=== PATIENT | female | born 2005 | race Hispanic/Latino ===

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

== ENCOUNTER 2025-02-16 02:24 | Emergency (ER) | payer BC ==
[~2025-02-16] VITALS: Ht 154.9 cm; Wt 103.5 kg
[~2025-02-16 02:24] MED LIST changes: -IBUP-2829 PO; +IBUP-2859 PO
--- NOTE | 2025-02-16 03:07 | ERN ---
ED Note History of Present Illness Stated Complaint: COUGH Chief Complaint: Cough Time Seen by MD: 02:27 Dictation: This is a 19-year-old female who presented to the emergency room complaining of subjective fever with chills body aches and flu-like syndrome. All this started yesterday and she also reported some cough and congestion and nonspecific headache. She denied any nausea vomitings diarrhea. No hemoptysis. Respiratory distress or dyspnea. Temperature 99.6 pulse 107 respirations 20 blood pressure 154/75 with a pulse oximetry of 97% on room air Past medical history significant for history of hip surgery and morbid obesity Allergies: Coded Allergies: No Known Allergies (Unverified Allergy, Unknown, 12/16/20) Home Meds Active Scripts Benzonatate (Tessalon Perles) 100 Mg Cap, 200 MG PO TID for cough, #60 CAP 0 Refills Prov:RAMYA CLANCY 11/11/24 Loratadine (Loratadine) 10 Mg Tablet, 1 TAB PO DAILY for allergy symptoms for 30 Days, #30 TAB 0 Refills Prov:PATSY FAUST MD 11/06/24 Fluticasone Propionate (Flonase Nasal [place]) 50 Mcg/Actuation [place], 2 SPRAY NS DAILY, #16 GM 0 Refills Prov:PATSY FAUST MD 11/06/24 Benzonatate (Tessalon Perles) 100 Mg Cap, 100 MG PO TID for cough, #30 CAP 0 Refills Prov:INESSA URIOSTEGUI I PAC 11/04/23 Naproxen (Naproxen) 375 Mg Tablet.dr, 375 MG PO [id number] PRN for PAIN for 7 Days, #14 TAB Prov:TRES JAMISON PATIENT SERVICE SPECIALIST 09/09/22 Ibuprofen (Motrin/Advil) 600 Mg Tab, 600 MG PO Q6HPRN, #30 TAB Prov:TRES SMITH NP 12/16/20 Guaifen/Dextromethorphan/PE (Vanatab Dm Caplet) 1 Each Tablet, 1 EACH PO Q6HPRN, #30 TAB Prov:TRES SMITH NP 12/16/20 Azithromycin (Zithromax) 1 Gm Packet, 1 GM PO ONCE, #1 PKT Prov:TRES SMITH NP 12/16/20 Past Medical History Past Medical History: No Pertinent History Surgical History: Other Surgical History Other: HIP SURGERY Family History: Negative Social History: Negative History: Not Applicable : 0 Para: 0 Aborts: 0 RN Note Reviewed/Agreed w/PFSH: Yes Review of System Dictation Constitutional: Positive for fever,chills, and weight loss positive for body aches Eyes: Negative for injury, pain,redness, and discharge ENT: Negative for injury,pain or swelling Cardiovascular: Negative for chest pain, palpitations, and edema Respiratory: Negative for shortness of breath, positive cough, and congestion Abdomen/GI: Negative for abdominal pain, nausea, vomiting, diarrhea, and constipation Back: Negative for injury and pain : Negative for injury, bleeding and discharge MS/Extremity: Negative for injury and deformity Skin: Negative for rash, and discoloration Neuro: Positive for headache, denied weakness, numbness, tingling, and seizure Psych: Negative for suicide ideation, homicidal ideation, and hallucinations Initial Vital Sign VS Vital Signs Date Time Temp Pulse Resp B/P (MAP) Pulse Ox O2 Delivery O2 Flow Rate FiO2 02/16/25 02:25 99.7 107 20 154/75 97 Room Air 0 Physical Exam Dictation General: awake, alert, NAD morbidly obese Head/Face: Normocephalic, atraumatic Eyes: PERRL, EOMI, vision at baseline ENT: oral cavity clear, TMs clear, no signs of infection Neck: Trachea midline, supple, no nuchal rigidity Cardiovascular: RRR, normal S1/S2, No MRGs, no JVD Respiratory: CTAB, no respiratory distress, No rales or wheezes Abdomen: Soft, non-tender, non-distended, normal bowel sounds, no guarding or rebound. Skin: Warm, dry, normal turgor, no rash MS/Extremity: Pulses equal, no cyanosis, neurovascular intact, FROM Neuro: COAx4, GCS 15, strength 5/5, CN 2-12 intact, normal cerebellar exam, normal gait, Psych: Normal behavior, mood, and affect normal Extremities-trace edema without any palpable cords, Homans sign is negative Results (Laboratory/Radiology) Laboratory/Radiology Laboratory Tests Test 02/16/25 02:55 Influenza Type A Antigen Positive For Type A Influenza Type B Antigen Negative For Type B SARS-CoV-2, RNA, NAAT NEGATIVE SARS CoV-2 Group A Streptococcus Rapid negative (NEGATIVE) Labs Reviewed?: Yes ED Course ED Course Orders Procedure Category Date Status Time Influenza Type A & B, LAB 02/16/25 Complete Rapid 02:31 Rapid (Group A Strep) LAB 02/16/25 Complete 02:31 Covid Rna Naat LAB 02/16/25 Complete 02:31 Oseltamivir Phosphate PHA 02/16/25 Verified (Tamiflu) 04:00 Ketorolac PHA 02/16/25 Verified Tromethamine 30mg/Ml 04:00 Vital Signs Date Time Temp Pulse Resp B/P (MAP) Pulse Ox O2 Delivery O2 Flow Rate FiO2 02/16/25 02:25 99.7 107 20 154/75 97 Room Air 0 Medical Decision Making MDM Differential diagnosis:Influenza, COVID, RSV, streptococcal pharyngitis, otitis media, acute viral syndrome This is a 19-year-old female who presented to the emergency room complaining of subjective fever with chills body aches and flu-like syndrome. All this started yesterday and she also reported some cough and congestion and nonspecific headache. She denied any nausea vomitings diarrhea. No hemoptysis. Respiratory distress or dyspnea. Temperature 99.6 pulse 107 respirations 20 blood pressure 154/75 with a pulse oximetry of 97% on room air Past medical history significant for history of hip surgery and morbid obesity 3:50 a.m. nasopharyngeal swabs a showed positive influenza a. Patient will be initiated on Tamiflu and given a dose of Toradol. Upon DC encouraged to see her primary care physician and complete the course of Tamiflu as outpatient Rationale: Tests considered and ordered secondary to shared decision making include: Nasopharyngeal swabs Previous outside records reviewed: Old ER visits. Risk of complication and/or morbidity or mortality of patient management: None Medications-Per medication reconciliation Need for hospitalization: Patient does not meet criteria for hospitalization. Need for emergency major/minor surgery: No There are no social concerns with this patient. Prescription drug management Prescriptions will include symptomatic care Patient's prior external medical records from other ER visits were reviewed by me as indicated. Prior testing and results from previous visits were reviewed. Prior tests were taken into account with medical decision making and resource utilization, independent historian/historians were used to obtain complete medical history. I independently interpreted the test that were performed, results were reviewed by me and considered findings on radiology if ordered. Medical management and examination interpretation discussions were had by me w ith other qualified healthcare professionals as indicated for the patient's care. DX & DISP Disposition: Discharge Departure Impression: Primary Impression: Influenza A Condition: Stable Scripts Oseltamivir Phosphate (Tamiflu) 75 Mg Cap 75 MG PO BID for 5 Days, #10 CAP 0 Refills Prov: JOHN PAUL RAI MD 02/16/25 Additional Instructions: Patient and the caregiver have been informed of all the diagnostic tests and the imaging conducted during the today's visit to the emergency room and has verbalized understanding of the results I have personally reviewed and interpreted all diagnostic exams performed here in the ER today as well as the vital signs documented by the nursing staff. The patient is now being discharged to home and should follow up with the primary care physician or the specialist as directed by the ER staff. Encourage p.o. fluids Counseling on weight loss diet and exercise bad discussed Referrals: ROBYN MARADIAGA MD (PCP) JOHN PAUL RAI MD Feb 16, 2025 03:07
[2025-02-16 03:12] LABS: RAPID GROUP A STREP negative (NEGATIVE)
[2025-02-16 03:17] LABS: SARS-CoV-2, RNA, NAAT NEGATIVE SARS CoV-2 (NEGATIVE)
[2025-02-16 03:21] LABS: INFLUENZA TYPE B Negative For Type B (NEGATIVE)
[2025-02-16 03:31] LABS: INFLUENZA TYPE A Positive For Type A (NEGATIVE)
[2025-02-16] MEDS ORDERED: OSEL75 PO (03:55)
[2025-02-16] MEDS: OSELTAMIVIR PHOSPHATE 75 MG CAP PO ONE (04:11)
[2025-02-16 04:16] VITALS: BP 148/72; PULSE 98; RESP 18; TEMP 99.1; O2SAT 97
== END 2025-02-16 04:54 | disposition home or self-care (01) ==
LOC: EDH 02:24
DX: J10.1 Influenza due to other identified influenza virus with other respiratory manifestations (principal); E66.01 Morbid (severe) obesity due to excess calories; Z20.822 Contact with and (suspected) exposure to COVID-19; Z98.890 Other specified postprocedural states; Z68.51 Body mass index [BMI] pediatric, less than 5th percentile for age
CPT/HCPCS: 99284; 87635; 87880; 87804 ×2; 96372; J1885